=== PATIENT | female | born 1990 | race Caucasian/White ===

== ENCOUNTER 2017-04-06 04:00 | Inpatient (IN) | payer OTHER ==
--- NOTE | ~2017-04-06 | PA ---
Unit #: [id number] #: [id number] Patient: FELIPA BLAS [id number] [facility] [address] [place] [address] [id number] I MR#: [id number] NAME: FELIPA BLAS ROOM: P209 Age: 27 Sex: F Admission Date: 04/06/2017 : 1990 Date of Assessment: 04/07/2017 Attending Physician: Kvng Ulrich M.D. Admitting Physician: Kvng Ulrich M.D. Primary Care Physician: Primary Care Physician No PSYCHIATRIC ASSESSMENT INFORMANTS Patient reliability, fair informant; chart reliability, good. CHIEF COMPLAINT Depression, opioid withdrawal. HISTORY OF PRESENT ILLNESS Ms. Man is a 27-year-old female, presented with the above-mentioned complaint. The patient was referred from [facility] experiencing desire to detox from heroin and meth. The patient reported stopped taking all drugs before coming to the hospital. The patient reported symptoms of withdrawal. The patient stated that she wanted to get clean to regain custody of her children. The patient reports that she needs help with getting off from drug. The patient tested positive for amphetamine and opioids in the ER admitting IV drug use. The patient currently denied any suicidal or homicidal ideation. Denied any psychotic symptom. Needing inpatient admission at this time for psychiatric stabilization. The patient reported tobacco use, age of onset 9; alcohol, age of onset 17; marijuana, age of onset, 17; crack cocaine, age of onset 25; opioid, age of onset 25. The patient reported no history of blackout. History of IV drug use. No history of any HIV or hepatitis. History of withdrawal symptoms such as abdominal cramping, muscle cramping, depressed mood, headache, nervousness, sleep problem, unpleasant dreams. PAST PSYCHIATRIC HISTORY Unremarkable for any history of any previous treatment. FAMILY HISTORY AND SOCIAL HISTORY The patient has a poor support system. History of substance abuse in both sides of the family. No known history of any abuse. MEDICAL HISTORY Unremarkable for any chronic medical illness. Musculoskeletal; muscle strength and tone, no atrophy or abnormal movement. Gait normal. MEDICATION HISTORY None. ALLERGIES No known drug allergies. SUBSTANCE ABUSE HISTORY Please see above. Unit #: [id number] #: [id number] Patient: FELIPA BLAS REVIEW OF SYSTEMS HEENT: Eyes, clear. Ears, nose, mouth, and throat; clear. CARDIOVASCULAR: Unremarkable. RESPIRATORY: Unremarkable. GI: Unremarkable. : Unremarkable. SKIN: Unremarkable. LYMPH NODE: Unremarkable. NEUROLOGIC: Unremarkable. ENDOCRINE: Unremarkable. HEMATOLOGIC: Unremarkable. ALLERGIC/IMMUNOLOGIC: Unremarkable. MUSCULOSKELETAL: Muscle strength and tone, no atrophy or abnormal movement. Gait normal. MENTAL STATUS EXAMINATION CONSTITUTIONAL: Measurement of vital signs; temperature 98.8, heart rate 115, respiratory rate 16, blood pressure 114/60, height 5 feet 6 inches, weight 110 pounds. GENERAL APPEARANCE: The patient dressed casually. The patient did not show any facial deformity. MUSCULOSKELETAL: Please see above. PSYCHIATRIC EXAMINATION Description of speech; regular rate, normal volume, normal articulation. Description of thought process, goal directed. Description of association, intact. Description of abnormal psychotic thinking; the patient denied any hallucination or delusions, but mood lability, sad, depressed, withdrawal symptoms. Description of the patient's judgment, concerning everyday activity, poor. Social situation, poor. Concerning psychiatric condition, poor. Complete mental status examination; oriented in time, place, and person. Recent and remote memory, fair. Attention span and concentration, fair. Language, able to name object and repeat phrases. Fund of knowledge, aware of current event and passive vocabulary intact. Mood and affect, sad and dysphoric. Insight and judgment, fair to poor. ASSETS AND LIABILITIES Assets; the patient is articulate and able to take care of her ADL. Liability, history of substance abuse, depression. ADMITTING DIAGNOSES Psychiatric: Mood disorder, not otherwise specified, F32.9; anxiety disorder, not otherwise specified, F41.9; opioid use disorder, moderate, F11.20. Secondary diagnosis: Deferred. Medical diagnosis: None. Stressors: Psychosocial stressors. PSYCHIATRIC PLAN 1. Advised to admit the patient on the inpatient unit. Provide safe, supportive, and structured environment. 2. Ordered labs; CBC, CMP, UA, and UDS. Unit #: [id number] #: [id number] Patient: FELIPA BLAS 3. Detox protocol and detox monitoring. If needed, consider further adjustment of medication. 4. The patient to attend all the programing group therapy, individual therapy, family session if possible. TREATMENT GOAL To attain euthymic mood, gain insight into her problem, and learn coping skills. DISCHARGE PLAN Plan to stabilize the patient and consider followup in outpatient program. ESTIMATED LENGTH OF STAY 5 days. Dictated by... Issac Luo/osmany TD: 04/08/2017 07:45 JOB #: [id number] PSYCHIATRIC ASSESSMENT Page 1 of 1 X Kvng Ulrich MD X PSYCHIATRIC ASSESSMENT
--- NOTE | ~2017-04-06 | HP ---
Unit #: [id number] #: [id number] Patient: FELIPA BLAS [id number] [place] [address] [id number] I MR#: [id number] NAME: FELIPA BLAS ROOM: P209 Age: 27 Sex: F Admission Date: 04/06/2017 : 1990 Attending Physician: Kvng Ulrich M.D. Admitting Physician: Kvng Ulrich M.D. Primary Care Physician: Primary Care Physician No HISTORY AND PHYSICAL HISTORY OF PRESENT ILLNESS The patient is a 27-year-old female who states she was admitted due to detox from heroin and methamphetamine. PAST MEDICAL HISTORY None. PAST SURGICAL HISTORY Positive for . ALLERGIES Patient states to sulfa and penicillin. SOCIAL HISTORY Positive for smoking, heroin and methamphetamine. FAMILY HISTORY Noncontributory. REVIEW OF SYSTEMS CONSTITUTIONAL: No fever or chills. HEENT: Denies any sore throat, ear pain or runny nose. CARDIOVASCULAR: Denies chest pain, irregular heart rhythm or palpitations. CHEST: Denies shortness of breath or cough. No hemoptysis. GASTROINTESTINAL: Denies nausea, vomiting, diarrhea or chronic constipation. ENDOCRINE: Denies history of increased thirst or urination. No recent significant weight loss or gain. GENITOURINARY: Denies dysuria, frequency, or hematuria. SKIN: Denies any rashes. HEMATOLOGIC: Denies history of increased bleeding or bruising. MUSCULOSKELETAL: Denies any hot, swollen joints. No generalized muscle pain. NEUROLOGIC: Denies problems with vision or speech. No frequent, severe headaches. No numbness, tingling or weakness in any extremities. Denies loss of bladder or bowel control. CURRENT MEDICATIONS None. PHYSICAL EXAMINATION GENERAL: Alert, oriented, in no acute distress. VITAL SIGNS: Temperature 98.8, heart rate 126, respirations 18, blood Unit #: [id number] #: [id number] Patient: FELIPA BLAS pressure 114/60. HEIGHT: 5 feet 6 inches. WEIGHT: 115 pounds. SKIN: Warm and dry without rash or lesion. Multiple tattoos to right arm, left arm, left hand, midline abdomen, upper thoracic area, left buttock, right buttock. HEENT: Normocephalic. TMs not viewed. Oral and nasal passages clear. Conjunctivae clear. PERRLA. EOMs intact. NECK: Supple without lymphadenopathy or thyromegaly. HEART: Regular rate and rhythm without murmur. LUNGS: Clear. ABDOMEN: Soft, nontender, without masses or hepatosplenomegaly. : Not done. EXTREMITIES: No evidence of cyanosis, clubbing or edema. Moves all without focal deficit. NEUROLOGICAL: Grossly within normal limits. Cranial Nerves: II: Visual cisneros are intact. III, IV AND : Extraocular movements are intact. Pupils are equal, round and reactive to light. V: Facial sensation is grossly normal. VII: Facial movements and expression are normal. VIII: Auditory acuity grossly intact. IX, X: Uvula is midline. Phonation is normal. XI: Patient shrugs shoulders and turns head normally. XII: Tongue protrudes in the midline. Sensory and Motor Function: Sensory and motor sensation is grossly normal. Motor: moves all extremities well. Coordination: Gait is normal. Deep Tendon Reflexes: Intact. IMPRESSION Psychiatric admission. RECOMMENDATIONS PSYCHIATRIC: Per psychiatrist. MEDICAL: No contraindications to participate in facility's activities. MEDICAL PROGNOSIS Good. Dictated by... Dom Edgar/claudio TD: 04/06/2017 21:21 JOB #: [id number] Unit #: [id number] #: [id number] Patient: FELIPA BLAS HISTORY AND PHYSICAL Page 1 of 1 X Lorri Beck APR X HISTORY AND PHYSICAL
--- NOTE | ~2017-04-06 | PN ---
Unit #: [id number] #: [id number] Patient: FELIPA BLAS [id number] [facility] [address] [place] [address] [id number] I MR#: [id number] NAME: FELIPA BLAS ROOM: P209 Age: 27 Sex: F Admission Date: 04/06/2017 : 1990 Attending Physician: Kvng Ulrich M.D. Admitting Physician: Kvng Ulrich M.D. Primary Care Physician: Nancy Primary Care Physician [facility] PROGRESS NOTES DATE OF SERVICE 04/07/2017 DISCUSSION Ms. Man is a 27-year-old female seen on 04/07/2017. Patient interviewed, chart reviewed, and obtained information from nursing staff. Patient is compliant and cooperative. Mood sad, dysphoric and flat affect, but able to maintain safe behavior. Patient was able to participate in some group, but still isolative, guarded, and flat affect, and sad, dysphoric mood. REVIEW OF SYSTEMS Complete review of systems unremarkable. MENTAL STATUS EXAMINATION GENERAL APPEARANCE: Patient dressed casually. ATTENTION SPAN AND CONCENTRATION: Fair. ORIENTATION: Oriented in time, place, and person. MOOD AND AFFECT: Sad, depressed. SPEECH: Monotone. THOUGHT PROCESS: [place]. Patient denied any thoughts of harming self or others, but guarded. RECENT AND REMOTE MEMORY: Poor. INSIGHT AND JUDGEMENT: Poor. DIAGNOSES 1. Mood disorder, NOS. 2. Generalized anxiety disorder, NOS. 3. Opiate use disorder, moderate. ASSESSMENT/PLAN Advised to continue with current medication and therapeutic protocol. If needed, consider further adjustment of medication. Dictated by... Issac Luo/dalton Unit #: [id number] #: [id number] Patient: FELIPA BLAS TD: 04/09/2017 09:18 JOB #: [id number] [facility] PROGRESS NOTES Page 1 of 1 X Kvng Ulrich MD PROGRESS NOTE
--- NOTE | ~2017-04-06 | DS ---
Unit #: [id number] #: [id number] Patient: FELIPA BLAS [id number] [facility] [address] [place] [address] [id number] I MR#: [id number] NAME: FELIPA BLAS ROOM: [facility] Age: 27 Sex: F Admission Date: 04/06/2017 : 1990 Discharge Date: 04/08/2017 Attending Physician: Kvng Ulrich M.D. Primary Care Physician: Primary Care Physician No DISCHARGE SUMMARY REASON FOR ADMISSION Detox. DIAGNOSTIC STUDIES LABORATORY RESULTS: Unremarkable. HOSPITAL COURSE The patient was admitted to inpatient unit on 04/06/2017 and discharged on 04/08/2017. The patient was treated with group therapy, individual therapy, medication management, detox protocol, chemical dependency group. The patient responded well with the above modalities of treatment. Subsequently, the patient was discharged with a plan to follow up in outpatient program. DISCHARGE MEDICATIONS Vistaril 50 mg t.i.d. for anxiety and Sinequan 100 mg at bedtime for sleep. DISCHARGE DIAGNOSES Psychiatric: 1. Mood disorder, not otherwise specified, F32.9. 2. Anxiety disorder, not otherwise specified, F41.9. 3. Opioid use disorder, moderate, F11.20. Secondary diagnosis: Deferred. Medical diagnosis: None. Stressors: Psychosocial stressors. DISCHARGE INSTRUCTIONS The patient to follow up in outpatient clinic as per social work faculty member. CONDITION ON DISCHARGE The patient was pleasant and cooperative. Denied any psychotic symptom or any suicidal ideation. PROGNOSIS Guarded. DIET AND ACTIVITY As tolerated. Dictated by... Unit #: [id number] #: [id number] Patient: FELIPA BLAS Issac Luo/osmany TD: 04/09/2017 03:49 JOB #: [id number] DISCHARGE SUMMARY Page 1 of 1 X Kvng Ulrich MD X DISCHARGE SUMMARY
== END 2017-04-08 16:15 | disposition home or self-care (01) | DRG 897 ==
LOC: P2S 10:31
PROC: HZ2ZZZZ Detoxification Services for Substance Abuse Treatment (ICD-10-PCS; principal; 2017-04-06)
DX: F11.20 Opioid dependence, uncomplicated (principal); F39 Unspecified mood [affective] disorder; F32.9 Major depressive disorder, single episode, unspecified; F41.9 Anxiety disorder, unspecified; Z81.4 Family history of other substance abuse and dependence; Z88.2 Allergy status to sulfonamides; Z88.0 Allergy status to penicillin; F17.210 Nicotine dependence, cigarettes, uncomplicated